=== PATIENT | male | born 1990 | race Caucasian/White ===

== ENCOUNTER 2021-06-11 17:36 | Emergency (ER) | payer OTHER ==
[~2021-06-11] VITALS: Ht 185.4 cm; Wt 88.5 kg
[2021-06-11 17:38] VITALS: BP 151/98
--- NOTE | 2021-06-11 18:01 | NUR ---
Patient w/c assisted to bed 06
--- NOTE | 2021-06-11 18:10 | NUR ---
Dr. Graham is evaluating pt at bedside
--- NOTE | 2021-06-11 18:10 | NUR ---
30 y/o M BIBA c/o anxiety, bilateral upper extremity tingling and bilateral lower extremity tremors. Patient states he took a preworkout at 1600 and began experiencing symptoms. Patient states feeling uneasy and states "it felt like a panic attack." Patient denies SOB, chest pain, cough, dizziness, headache, fever, chills, n/v/d. No meds prior to arrival. VSS; RR even/unlabored SpO2 100% on room air. Bed locked in lowest position, side rails x 1. PMH/Sx/Meds: Denies NKDA
[2021-06-11] MEDS ORDERED: LORazepam 1 MG TAB PO ONE (18:15)
--- NOTE | 2021-06-11 18:45 | NUR ---
Patient states + relief from medication. 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 All needs met.
--- NOTE | 2021-06-11 18:56 | NUR ---
Patient discharged with v/s stable. Written and verbal after care instructions given and explained for Caffeine Adverse Reaction, Accidental Overdose. Patient verbalized understanding. Ambulatory with steady gait. All questions addressed prior to discharge. Advised to follow up with PMD. Work note provided.
== END 2021-06-11 18:56 | disposition home or self-care (01) ==
LOC: MED 17:36
DX: T43.611A Poisoning by caffeine, accidental (unintentional), initial encounter (principal); R00.2 Palpitations; F41.9 Anxiety disorder, unspecified; Y92.89 Other specified places as the place of occurrence of the external cause
CPT/HCPCS: 93005; 99283